=== PATIENT | male | born 1965 | race Caucasian/White ===

== ENCOUNTER 2017-07-15 09:23 | Emergency (ER) | payer OTHER | END 2017-07-15 10:49 | disposition home or self-care (01) | LOC: D.ER 09:23 | DX: S43.401A Unspecified sprain of right shoulder joint, initial encounter (principal); W01.0XXA Fall on same level from slipping, tripping and stumbling without subsequent striking against object, initial encounter; Y93.89 Activity, other specified; Y92.029 Unspecified place in mobile home as the place of occurrence of the external cause ==

== ENCOUNTER 2019-01-29 02:34 | Inpatient (IN) | payer OTHER ==
[~2019-01-29] VITALS: Ht 177.8 cm; Wt 101.1 kg
[2019-01-29] VITALS (16 sets, daily range): BP systolic 112–135; BP diastolic 70–84; Ht 177.8 cm; Wt 101.1 kg
--- NOTE | ~2019-01-29 | DS ---
PATIENT:ABDIRIZAK OHARA JR :69 MEDICAL RECORD: [id number] DISCHARGE SUMMARY ADMISSION DATE: 01/29/19 DISCHARGE DATE: 01/29/19 DISCHARGE DIAGNOSES: 1. Acute anterior myocardial infarction. 2. Percutaneous transluminal coronary angioplasty stent left anterior descending. 3. Hypertension. 4. Hyperlipidemia. HOSPITAL COURSE: Mr. Ohara presents with acute anterior myocardial infarction, went emergently to the concrete laborer where he was found to have significant disease of the LAD, underwent successful PTCA stent of the LAD, was discharged home with the addition of aspirin, Plavix, Toprol, Pravachol to his medical regimen. He will follow up with [facility] in 1 month. TRANSINT:[id number] Voice Confirmation ID: [id number] DOCUMENT ID: [id number] MARIALUISA DEAL MD CC: [id number] DICTATION DATE: 01/29/19 123 SUPERVISOR PAPER MACHINE: 01/30/19 0253 DIS IN 01/29/19 [facility] [address] [place] [address]
--- NOTE | ~2019-01-29 | EC ---
PATIENT:ABDIRIZAK OHARA JR DATE OF SERVICE: 01/29/19 SEX: M MEDICAL RECORD: [id number] DATE OF : 69 LOCATION:[place] [address] AGE OF PATIENT: 53 ADMISSION DATE: 01/29/19 REFERRING PHYSICIAN: INTERPRETING PHYSICIAN: MARIALUISA BLACK MD ECHOCARDIOGRAM REPORT ECHO CHARGES 4 ECHO COMPLETE Date: 01/29/19 CLINICAL DIAGNOSIS: KS ECHOCARDIOGRAPHIC MEASUREMENTS (adult normal given) AC root (d.<3.7cm) 3.5 cm LV Septum d (<1.2 cm> 1.8 cm Valve Excursion 2.0 cm LV Septum (systole) 2.5 cm Left Atria (s.<4.0cm> 3.7 cm LVPW d(<1.2cm) 1.8 cm RV (d.<2.3cm) 2.7 cm LVPW (sytole) 2.3 cm LV diastole(<5.6CM) 4.3 cm MV E-F(>70mm/sec) cm LV systole 1.9 cm LVOT Diameter 2.0 cm MV exc.(>10mm) cm Est.ejection fraction (50-75%) % DOPPLER: LVIT cm/sec A 46.0 cm/sec E 71.0 cm/sec LA cm/sec RVSP 34.0 mmHg LVOT 84.0 cm/sec AOP1/2T m/s Asc. Ao 109 cm/sec RVOT 45.0 cm/sec RA cm/sec PA 64.0 cm/sec AV Gradient Peak 4.8 mmHg AV Mean 2.3 mmHg AV Area 2.6 cm MV Gradient Peak 3.4 mmHg MV Mean 0.93 mmHg MV Area cm COMMENTS: Anode Builder: Paz CANOOE Extrusion Process Operator: 1 Dr. Black TAPE# PACS Pericardial Effusion N DATE OF SERVICE: 01/29/2019 PROCEDURE: Echocardiogram. FINDINGS: 1. Left ventricular chamber size is within normal limits. Left ventricular systolic function is mildly reduced, overall ejection fraction in the 45% range. There is anteroapical hypokinesis. 2. Left atrium, right atrium, and right ventricular chamber sizes are within normal limits. ECHOCARDIOGRAM REPORT [id number] ABDIRIZAK OHARA JR 3. Valvular structures have normal structure and motion. 4. Doppler interrogation reveals mild mitral regurgitation, [id number] tricuspid regurgitation, no other valvular insufficiency or stenosis. Pulmonary systolic pressure is estimated 34 mmHg. 5. No evidence of pericardial effusion or left ventricular thrombus. TRANSINT:[id number] Voice Confirmation ID: [id number] DOCUMENT ID: [id number] MARIALUISA BLACK MD CC: [id number] DICTATION DATE: 01/30/1950 GRAVEL WEIGHER: 01/30/1908 DIS IN 01/29/19 [place] [id number] [place] [id number]
--- NOTE | ~2019-01-29 | HEMODYNAMI ---
PATIENT:ABDIRIZAK OHARA JR MEDICAL RECORD: [id number] : 69 LOCATION:[place] [address] ADMISSION DATE: 01/29/19 Generatedon:01/29/20193:57 Patient name: ABDIRIZAK OHARA Patient #: [id number] SSN: D OB: 1965 Date of study: 01/29/2019 Page: Of Hemodynamic Procedure Report Patient Data Patient Demographics Procedure consent was obtained First Name: ABDIRIZAK Gender: Male Last Name: LEV Suffix: Jr Ramirez Initial: Kathy : 1965 Patient #: [id number] Age: 53 year(s) Race: Unknown Additional ID: [id number] Contact details Address: [address] [place] [address] [place] State: [place] City: [place] Zip code: [address] Admission Admission Data Admission Date: 01/29/2019 Admission Time: 2:48 Room #: [facility] Procedure Procedure Types Cath Procedure Diagnostic Procedure LHC LHC w/Coronaries PCI Procedure AMI/SVG/AUTOMOTIVE SOFTWARE ENGINEER PTCA or Stent AMI-BMS/ESTRELLA Initial Procedure Description Procedure Date Procedure Date: 01/29/2019 Procedure Start Time: 3:40 Procedure End Time: 3:52 Procedure Staff Name Function Ant Black MD Performing Physician Raymon Ledezma RT Monitor Michelle Boston RT Scrub Lavinia Heredia RN Nurse Procedure Data Cath Procedure Fluoroscopy Diagnostic fluoroscopy Total fluoroscopy Time: 3.5 time: 3.5 min min Diagnostic fluoroscopy Total fluoroscopy dose: 555 dose: 555 mGy mGy Contrast Material Contrast Material Type Amount (ml) Isovue 300 62 Entry Location Entry Primary Successful Side Size Upsize Upsize Entry Closure Succes sful Closure Location (Fr) 1 (Fr) 2 (Fr) Remarks Device Remarks Femoral Right 6 Fr Exoseal artery Short Estimated blood loss: 10 ml Diagnostic catheters Device Type Used For End Catheter Placement MULTIPACK Pigtail 5 Fr Procedure catheter MULTIPACK JL 4.0 5Fr Procedure catheter MULTIPACK 3DRC 5Fr Procedure catheter Procedure Complications No complications Procedure Medications Medication Administration Route Dosage 0.9% NaCl I.V. 100 ml/hr Oxygen etCO2 Nasal cannula 2 l/min Lidocaine 2% added to field 20 Heparin Flush Bag added to field 2 bags (1000units/500ml NS) Versed I.V. 2 mg Fentanyl I.V. 50 mcg Heparin Bolus I.V. 4000 units Integrilin (Bolus I.V. 9 ml 2mg/ml) Versed I.V. 2 mg Fentanyl I.V. 50 mcg Hemodynamics Rest Heart Rate: 64 (bpm) Pressure Samples Time Site Value (mmHg) Purpose Heart Use Rate(bpm) 3:45 AO 130/80(103) Snapshot 73 Snapshots Pre Cath Intra NCS Post Cath Vital Signs Time Heart Resp SPO2 etCO2 NIBP (mmHg) Rhythm Pain Sedation Rate (ipm) (%) (mmHg) Status Level (bpm) 3:32:10 66 16 99 22 139/93(115) NSR 0 (11) 10(A) , No pain 3:36:38 67 14 100 25.4 146/90(120) NSR 0 (11) 10(A) , No pain 3:41:11 71 14 100 17.9 140/86(113) NSR 0 (11) 10(A) , No pain 3:45:37 73 17 98 31.4 134/94(108) NSR 0 (11) 9(A) , No pain 3:50:01 88 16 98 24.6 129/90(103) NSR 0 (11) 10(A) , No pain Medications Time Medication Route Dose Verified Delivered Reason Notes Effectiveness by by 3:31:20 0.9% NaCl I.V. 100 Ant Lavinia used for ml/hr Sofia Heredia receiving clerk 3:31:27 Oxygen etCO2 2 Ant Lavinia used for Nasal l/min Sofia Heredia procedure cannula RN 3:31:33 Lidocaine 2% added 20ml Ant Cain for local to vial Sofia Black MD anesthetic field 3:31:37 Heparin Flush added 2 Ant Ant used for Bag to bags Sofia Black MD procedure (1000units/500ml field NS) 3:39:26 Versed I.V. 2 mg Ant Lavinia for sedation Sofia Heredia RN 3:39:35 Fentanyl I.V. 50 Ant Laivnia for sedation mcg Sofia Heredia RN 3:44:16 Versed I.V. 2 mg Ant Allisona for sedation Sofia Heredia RN 3:44:26 Fentanyl I.V. 50 Ant Lavinia for sedation mcg Sofia Heredia RN 3:46:38 Heparin Bolus I.V. 4000 Ant Allisona for verifi ed units Sofia Heredia anticoagulation with Dr. RAJAN Black 3:46:51 Integrilin I.V. 9 ml Ant Kate for wasted (Bolus 2mg/ml) Sofia Heredia antiplatelet 1mL RN therapy Procedure Log Time Note 3:10:54 Raymon Ledezma RT(R) sent for patient. Start room use. 3:24:01 Signed procedure consent form obtained from patient. 3:24:09 Time tracking: Call back (After hours or weekends) 3:24:13 Plan of Care:Hemodynamics will remain stable., Cardiac rhythm will remain stable., Comfort level will be maintained., Respiratory function will remain adequate., Patient/ family verbilizes understanding of procedure., Procedure tolerated without complication., Recovers from procedure without complications.. 3:24:42 Patient received from ED to CCL 1 Alert and oriented. Tansferred to table in Supine position. 3:24:43 Warm blankets applied, and coty hugger turned on for patient comfort. 3:24:43 Correct patient and procedure confirmed by team. 3:24:44 ECG and BP/O2 sat monitors applied to patient. 3:30:47 Vital chart was started 3:30:48 Baseline sample Acquired. 3:30:52 Rhythm: sinus rhythm , w/ ST elevation 3:30:58 Full Disclosure recording started 3:31:09 H&P Date Dictated: 01/29/2019 Emergent; H&P N/A. 3:31:10 Pre-procedure instructions explained to patient. 3:31:11 Pre-op teaching completed and patient verbalized understanding. 3:31:14 Family in waiting room. 3:31:16 Patient NPO since Midnight. 3:31:18 Is the patient allergic to Iodine/contrast media? No. 3:31:20 0.9% NaCl 100 ml/hr I.V. was administered by Lavinia Heredia RN; used for procedure; 3:31:24 Is patient on blood thinner?Yes 3:31:27 Oxygen 2 l/min etCO2 Nasal cannula was administered by Lavinia Heredia RN; used for procedure; 3:31:27 ACC The patient was administered the following blood thiners within the last 24 hours: ACCPlavix 3:31:30 Patient diabetic? No. 3:31:32 Previous problem with sedation/anesthesia? No ? 3:31:33 Lidocaine 2% 20ml vial added to field was administered by Ant Black MD; for local anesthetic; 3:31:33 Snore? Yes 3:31:34 Sleep apnea? Yes 3:31:36 Deviated septum? No 3:31:37 Heparin Flush Bag (1000units/500ml NS) 2 bags added to field was administered by Ant Black MD; used for procedure; 3:31:37 Opens mouth fully? Yes 3:31:38 Sticks out tongue? Yes 3:31:40 Airway obstruction? No ? 3:31:43 Dentures? No ? 3:32:23 Pre procedure: right dorsailis pedis pulse 1+ Palpable, but thready & weak; easily obliterated 3:32:44 Patient pain scale 5/10 Physician notified. 3:32:51 IV patent on arrival in left antecubital with 0.9% NaCl at [facility]. 3:32:54 Lab results completed and on chart. 3:32:59 Right groin area was prepped with chlora-prep and draped in sterile fashion 3:33:00 Alarms reviewed by R. N. 3:33:01 Sharps counted by scrub and verified by R.N. 3:33:01 Physician paged 3:33:06 Use device set Radial Dx or PCI 3:33:09 Use device set TAUTH PCI 3:33:13 Tegaderm 4 x 4 (1626W) opened to sterile field. 3:33:13 ACIST Manifold (48690) opened to sterile field. 3:33:14 ACIST Hand Control (76919) opened to sterile field. 3:33:16 ACIST Syringe (41312) opened to sterile field. 3:33:16 Medline Cath Pack ([id number]) opened to sterile field. 3:33:16 Bag Decanter () opened to sterile field. 3:33:17 DIAGNOSTIC WIRE .035 260cm J wire (837651) opened to sterile field. 3:33:20 INFLATOR Merit Arvind (OZ9670) opened to sterile field. 3:33:22 CHOICE PT Extra Support 182cm wire ([id number]) opened to sterile field. 3:33:26 SHEATH 6FR [place] (TJG093) opened to sterile field. 3:38:11 --------ALL STOP TIME OUT------ 3:38:11 Final Timeout: patient, procedure, and site verified with staff and physician. All members of the team are in agreement. 3:38:14 Right groin site verified by team. 3:38:17 Maximum allowable Isovue 300 dose 300ml. Physician notified. (300ml for normal creatinines. For patients with creatinine of 1.7 or higher multiply weight(kg) x 5 divided by creatinine.) 3:38:21 Fire Safety Assessment: A--An alcohol-based skin anteseptic being used preoperatively., C--Open oxygen or nitrous oxide is being used., D--An ESU, laser, or fiber-optic light is being used. 3:38:24 Physical assessment completed. ASA score P 2 - A patient with mild systemic disease as per Ant Black MD. 3:38:27 Sedation plan: IV Moderate Sedation Medication:Versed, Fentanyl 3:39:26 Versed 2 mg I.V. was administered by Lavinia Heredia RN; for sedation; 3:39:35 Fentanyl 50 mcg I.V. was administered by Lavinia Heredia RN; for sedation; 3:40:04 Procedure started. 3:40:08 Local anesthetic to right femoral artery with Lidocaine 2% by Ant Black MD.INITIAL ACCESS ONLY 3:41:08 A 6 Fr Short sheath was inserted into the Right Femoral artery 3:41:17 Use device set Multipack Set 3:41:20 DIAGNOSTIC Multipack 5Fr catheter set ([id number]) opened to sterile field. 3:41:24 A MULTIPACK Pigtail 5 Fr catheter was advanced over the wire and used for Procedure. 3:41:26 Zero performed for pressure channel P1 3:41:29 Zero performed for pressure channel P1 3:41:32 Zero performed for pressure channel P1 3:41:36 Zero performed for pressure channel P1 3:41:41 Zero performed for pressure channel P1 3:41:54 LV angiography performed. 3:41:56 LV gram done using PARRISH 3:42:08 EF : 40 % 3:42:12 Injector settings: Ml/sec: 10, Volume: 20, 3:42:14 Catheter removed. 3:42:19 A MULTIPACK JL 4.0 5Fr catheter was advanced over the wire and used for Procedure. 3:42:59 LCA angiography performed. 3:43:19 GUIDE 6FR XBLAD 3.5 catheter ([id number]) opened to sterile field. 3:43:22 Catheter removed. 3:43:35 A MULTIPACK 3DRC 5Fr catheter was advanced over the wire and used for Procedure. 3:44:16 Versed 2 mg I.V. was administered by Lavinia Heredia RN; for sedation; 3:44:26 Fentanyl 50 mcg I.V. was administered by Lavinia Heredia RN; for sedation; 3:44:40 RCA angiography performed. 3:44:42 Catheter removed. 3:45:18 6 Fr XBLAD 3.5 guide catheter was inserted over the wire 3:45:46 CPTXS wire advanced. 3:46:17 Wire advanced across lesion. 3:46:38 Heparin Bolus 4000 units I.V. was administered by Lavinia Heredia RN; for anticoagulation; verified with Dr. Black 3:46:51 Integrilin (Bolus 2mg/ml) 9 ml I.V. was administered by Lavinia Heredia RN; for antiplatelet therapy; wasted 1mL 3:46:52 Inflate balloon Inflation number: 1 A EUPHORA 3.0 x 15 Balloon ([id number]) was prepped and advanced across the Mid LAD, then inflated to 11 MARIAELENA for 0:10 (min:sec). 3:47:26 Balloon removed over the wire. 3:48:48 Place stent Inflation Number: 2 A INTEGRITY RX 3.0 x 22 stent ([id number]) was prepped and advanced across the Mid LAD. The stent was deployed at 13 MARIAELENA for 0:10 (min:sec). 3:49:03 EXOSEAL 6Fr (EX600) opened to sterile field. 3:49:13 Stent catheter was removed intact over wire. 3:49:14 Wire removed. 3:49:15 Guide catheter removed. 3:49:37 Sheath removed intact; hemostasis achieved with Exoseal to the Right Femoral artery. 3:49:39 Procedure ended.(Physican Out) 3:51:40 Fluoroscopy time 03.50 minutes. 3:51:44 Flurop Dose total: 555 3:51:44 Fluoroscopy dose: 555 mGy 3:51:49 Contrast amount:Isovue 300 62ml. 3:51:54 Sharps counted by scrub and verified by R.N. 3:51:55 Insertion/operative site no bleeding no hematoma. 3:51:58 Post-op/insertion site Right Femoral artery dressed using a 4 x 4 and Tegaderm. 3:51:59 Post Procedure Pulses reassessed and unchanged 3:52:02 Post-procedure physical assessment completed. ASA score P 2 - A patient with mild systemic disease as per Ant Black MD. 3:52:04 Post procedure rhythm: unchanged. 3:52:09 Estimated blood loss: 10 ml 3:52:10 Post procedure instruction explained to patient.Patient verbalizes understanding. 3:52:11 Patient needs reinforcement of post procedure teaching. 3:52:23 Procedure type changed to Cath procedure, Diagnostic procedure, LHC, LHC w/Coronaries, PCI procedure, AMI/SVG/AUTOMOTIVE SOFTWARE ENGINEER PTCA or Stent, AMI-BMS/ESTRELLA Initial 3:52:41 Procedure and supply charges have been captured, reviewed, submitted and are correct. 3:52:44 Procedure Complication : No complications 3:52:46 Vital chart was stopped 3:52:47 See physician's report for complete and final results. 3:52:49 Report given to CVICU. 3:52:52 Patient transfered to CVICU with Bed. 3:52:54 Procedure ended. 3:52:54 Full Disclosure recording stopped 3:57:23 End room use (Document Last) Intervention Summary Intervention Notes Time ActionType Lesion and Equipment Action# Pressure Duration Attributes Used 3:46:52 Inflate Mid LAD EUPHORA 3.0 1 11 00:10 balloon x 15 Balloon ([id number]) 3:48:48 Place stent Mid LAD INTEGRITY RX 2 13 00:10 3.0 x 22 stent ([id number]) Device Usage Item Name Manufacture Quantity Catalog Number Hospital Part Current Mini [facility] Lot# / Charge Number Stock Stock Serial# Code Tegaderm 4 x 3M 1 1626W [id number] 608788 736196 5 4 (1626W) ACIST Acist 1 15868 276304 458602 870374 5 Manifold Medical (36457) Systems Inc ACIST Hand Acist 1 23184 386226 445930 631111 5 Control Medical (27465) Systems Inc ACIST Acist 1 44396 909963 421884 796367 20 Syringe Medical (21334) Systems Inc Medline Cath Medline 1 [id number] 436047 80518 538797 5 Pack ([id number]) Bag Decanter Microtek 1 2001S 907885 04284 699140 5 (2001S) Medical Inc. DIAGNOSTIC [place] 1 871626 605934 759380 552382 30 WIRE .035 260cm J wire (925108) INFLATOR Merit 1 BX0859 517660 852380 791236 15 Mutations Studio BasixCompak (XP3906) CHOICE PT [place] 1 [id number] 424792 411683 110180 5 Extra Scientific Support 182cm wire (0248120O4) SHEATH 6FR Terumo 1 PYW103 737474 729823 362844 40 [place] (NKQ946) DIAGNOSTIC Cardinal 1 QX1836 935185 08893 407568 30 Multipack Health 5Fr catheter set (VX6812) MULTIPACK Cardinal 1 100905 5 Pigtail 5 Fr Health catheter MULTIPACK JL Cardinal 1 191599 5 4.0 5Fr Health catheter GUIDE 6FR Cardinal 1 [id number] 992590 416410 840765 10 XBLAD 3.5 Health catheter ([id number]) MULTIPACK Cardinal 1 794605 5 3DRC 5Fr Health catheter EUPHORA 3.0 Medtronic 1 [id number] 588848 845053 348623 5 [id number] x 15 Balloon ([id number]) INTEGRITY RX Medtronic 1 [id number] 121767 388441 847630 5 [id number] 3.0 x 22 stent ([id number]) EXOSEAL 6Fr Cardinal 1 EX600 207267 979040 829389 10 (EX600) Health Signature Audit [place] Stage Time Signature Unsigned Intra-Procedure 01/29/2019 Raymon Ledezma 3:57:38 AM RT(R) Signatures Monitor : Raymon Ledezma RT Signature : Date : Time : [address] [place] [address]
--- NOTE | ~2019-01-29 | OP ---
PATIENT NAME: ABDIRIZAK OHARA JR MEDICAL RECORD: [id number] :69 LOCATION:[facility] ADMISSION DATE:01/29/19 SURGEON: MARIALUISA DEAL MD DATE OF OPERATION: 01/29/2019 PROCEDURES: 1. PTCA stent LAD. 2. Left heart catheterization. 3. Selective coronary angiography. 4. Left ventriculogram. INDICATION: Acute anterior myocardial infarction. DESCRIPTION OF PROCEDURE: After informed consent was obtained and after a detailed description of the risks, benefits as well as alternative therapies, the patient elected to proceed with angiogram and angioplasty. The right femoral area was prepped and draped in normal sterile fashion. Right femoral artery was cannulated via modified Seldinger technique with placement of 6-Albanian sheath. All catheters exchanged through this sheath. FINDINGS: The left ventriculogram was performed in standard 30-degree PARRISH view, reveals anteroapical hypokinesis, ejection fraction 40%. SELECTIVE CORONARY ANGIOGRAPHY: 1. Left main is with no significant angiographic disease. 2. Left anterior descending has a 99% stenosis in mid vessel. 3. Left circumflex has mild irregularities, but no flow-limiting stenosis. 4. Right coronary has mild irregularities, but no flow-limiting stenosis. PTCA STENT OF THE LAD: The stent used was a 3.0 x 22 mm Integrity. Result was 0% residual stenosis. OVERALL IMPRESSION: Successful PTCA stent of the LAD going from 99% initial stenosis to 0% residual. TRANSINT:[id number] Voice Confirmation ID: [id number] DOCUMENT ID: [id number] MARIALUISA DEAL MD CC: [id number] DICTATION DATE: 01/29/19356 STAFF DEVELOPMENT COORDINATOR RN: 01/29/19 0410 ADM IN [place] [id number] [place] [address]
--- NOTE | ~2019-01-29 | HP ---
PATIENT: ABDIRIZAK OHARA JR MEDICAL RECORD: [id number] ACCOUNT: [id number] LOCATION:[facility] D.CV05 : 69 ADMISSION DATE: 01/29/19 PCP: No PCP HISTORY AND PHYSICAL EXAMINATION DIAGNOSES: 1. Acute anterior myocardial infarction. 2. Coronary artery disease. 3. Family history of coronary artery disease. HISTORY OF PRESENT ILLNESS: This is a gentleman with no previous cardiac history who presents with intermittent chest pain that has been going on and off for the past week. It persisted this morning that is what caused him to present to the Emergency Room. His EKG is compatible with an acute anterior myocardial infarction. PHYSICAL EXAMINATION: GENERAL APPEARANCE: Well-nourished, well-developed, appears stated age. Level of distress, comfortable. PSYCHIATRIC: Mental status, alert, normal affect. Orientation, oriented to time, place and person. EYES: Lids and conjunctiva, noninjected. No discharge, no pallor. ENT: Lips, teeth, gums, normal dentition. Oropharynx, no cyanosis, no pallor. NECK: Carotid arteries, bilateral normal upstroke, no bruits, no thrills. JUGULAR VEINS: No jugular venous pressure or distention. CERVICAL LYMPH NODES: Nontender, nonenlarged. THYROID: Not enlarged. Nontender. No nodules. LUNGS: Respiratory effort, unlabored. CHEST: Normal curvature. No thoracic deformity. No chest wall tenderness. Percussion, resonant. Auscultation, clear. No wheezes, no rales, no rhonchi. CARDIOVASCULAR: Precordial exam, nondisplaced. No heaves or pericardial thrills. Rate and rhythm, regular. Heart sounds, normal S1, normal S2. No S3, no gallop, no rub. Systolic murmur, not heard. Diastolic murmur, not heard. EXTREMITIES: No cyanosis, no edema. Peripheral pulses, full and equal in all extremities, except as noted. No bruits appreciated. ABDOMEN: Soft, nondistended. Normal aorta. No bruit. Nontender. No masses. Liver, nontender, no hepatomegaly. Spleen, nontender, no splenomegaly. MUSCULOSKELETAL: No joint tenderness. No joint swelling. No erythema. NEUROLOGICAL: Normal gait, normal strength, normal tone. SKIN: Warm and dry. OVERALL IMPRESSION: Acute anterior myocardial infarction. We will proceed with emergent coronary angiography. Further care depends upon findings of the angiography. TRANSINT:[id number] Voice Confirmation ID: [id number] DOCUMENT ID: [id number] HISTORY AND PHYSICAL [id number] ABDIRIZAK OHARA JR, JEFFREY MD CC: [id number] DICTATION DATE: 01/29/19354 FARMWORKER MACHINE: 01/29/19 0406 ADM IN [facility] [address] [place] [address]
[2019-01-29] MEDS ORDERED: SINGULAIR10 MG PO (02:45)
[2019-01-29] MEDS ORDERED: ACIPHEX (02:46)
[2019-01-29] MEDS ORDERED: NASACORT10.8 ML NASAL (02:46)
[2019-01-29] MEDS ORDERED: CLARITIN 10 MG10 MG PO (02:46)
--- NOTE | 2019-01-29 03:02 | NUR ---
FIRST NITRO PAIN 01/15 18 GA TO LEFT AC
--- NOTE | 2019-01-29 04:05 | NUR ---
PATIENT RECEIVED FROM MUD TEMPERER TO ROOM CVO5. PATIENT IS AWAKE AND ALERT, ORIENTED X3. COMMUNICATES NEEDS WELL. LUNGS CTA THROUGHOUT ALL LOBES. R GROIN WITH DRESSING TO INCISION SOFT WITH NO BRUISING NOTED. PATIENT STATES HE FEELS MUCH BETTER. CALL LIGHT WITHIN REACH, BED IN LOW POSITION. PATIENT IS LAYING SUPINE IN BED, INSTRUCTED THAT HE MUST REMAIN FLAT FOR 4 HRS, AND TO KEEP LEG STRAIGHT WELL.
--- NOTE | 2019-01-29 06:30 | NUR ---
PATIENT UP TO CHAIR AND BATH GIVEN. CENTERAL LINE DRESSING CHANGED. FLUSHED EASILY BUT UNABLE TO DRAW BLOOD AT THIS TIME. CALL LIGHT WITHIN REACH.
--- NOTE | 2019-01-29 07:49 | NUR ---
0700 PT RECIEVED ALERT AND ORIENTED O2 2L NC, PIV TO BILAT AC SL, HR NSR 80S, R GROIN DRESSING CDI SOFT TO PALPATE, DENIES PAIN, CALL LIGHT WITHIN REACH, WILL CONTIN UE TO [place]
--- NOTE | 2019-01-29 13:05 | NUR ---
REVIEWED DC MEDS AND FOLLOW UP APPT WITH PT AND , DCD PIVS WITH TIPS INTACT NO SIGNS OF BLEEDING, DENIES ALL QUESTIONS OR NEEDS
--- NOTE | 2019-01-29 13:24 | NUR ---
PT ASSISTED TO CAR 1305 WITH
--- NOTE | 2019-01-29 13:52 | MORECARE ---
CASE MANAGEMENT DISCHARGE SUMMARY PATIENT: ABDIRIZAK OHARA JR UNIT: [id number] ADM DATE: 01/29/19 AGE: 53 : 69 SEX: M ROOM/BED: [facility] AUTHOR: CHARLIE HOLT PHYSICIAN: REFERRING PHYSICIAN: MARIALUISA DEAL MD DATE OF SERVICE: 01/29/19 Discharge Plan Patient Name: ABDIRIZAK OHARA [facility] 1965 Planned Disposition: Anticipated Discharge Date: Discharge Date: 01/29/2019 Expected LOS: Initial Reviewer: [id number] Initial Review Date: 01/29/2019 Generated: 01/29/19 2:52 pm Patient Name: ABDIRIZAK OHARA Page 24901 at 1352 All edits/amendments must be made on the electronic document DICTATION DATE: 01/29/19 1352 LANG PATH THERAPIST: EDWARD 01/29/19 1352 RPT#: [id number] DC DATE:01/29/19 STATUS: DIS IN [facility] [address] [place] [address] END OF REPORT
== END 2019-01-29 13:25 | disposition home or self-care (01) | DRG 249 ==
LOC: D.ER 02:34 → D.EDHOLD 02:48 → D.CVICU 02:48
PROVIDERS: ADMIT Internal Medicine Interventional Cardiology; ATTEND Internal Medicine Interventional Cardiology
PROC: B2151ZZ Fluoroscopy of Left Heart using Low Osmolar Contrast (ICD-10-PCS; 2019-01-29)
PROC: 4A023N7 Measurement of Cardiac Sampling and Pressure, Left Heart, Percutaneous Approach (ICD-10-PCS; 2019-01-29)
PROC: 02703DZ Dilation of Coronary Artery, One Artery with Intraluminal Device, Percutaneous Approach (ICD-10-PCS; principal; 2019-01-29 03:10)
PROC: B2111ZZ Fluoroscopy of Multiple Coronary Arteries using Low Osmolar Contrast (ICD-10-PCS; 2019-01-29 03:10)
DX: I21.09 ST elevation (STEMI) myocardial infarction involving other coronary artery of anterior wall (principal); I10 Essential (primary) hypertension; E78.5 Hyperlipidemia, unspecified; I25.10 Atherosclerotic heart disease of native coronary artery without angina pectoris